=== PATIENT | male | born 1995 | race Caucasian/White ===

== ENCOUNTER 2017-10-07 15:44 | Emergency (ER) | END 2017-10-07 16:41 | disposition home or self-care (01) ==

== ENCOUNTER 2018-01-07 16:43 | Emergency (ER) | END 2018-01-07 20:14 | disposition home or self-care (01) ==

== ENCOUNTER 2018-03-09 21:05 | Emergency (ER) | END 2018-03-10 01:00 | disposition left against medical advice (07) ==

== ENCOUNTER 2018-07-27 02:28 | Emergency (ER) | payer SELFPAY ==
[~2018-07-27] VITALS: Wt 77.3 kg
[~2018-07-27 02:28] MED LIST: ACET500C5 PO; ALBU8.5H8 INH; AZIT250T PO; DOXY100T20 PO; GUAI120S26 PO; IBUP-1542 PO; LORA-186 PO; NAPR-985 PO; PRED20TA PO; no meds
[2018-07-27] MEDS ORDERED: DIPHTH/TET/ACEL PERTUSS (ADULT) 0.5 ML VIAL IM* ONE (03:00)
[2018-07-27] MEDS ORDERED: BACITRACIN/POLYMYXIN 0.9 GM OINT ONE (04:01)
--- NOTE | 2018-07-27 04:26 | ERD ---
ER Documentation Chief Complaint Chief Complaint ETOH, LEFT FINGER LAC, SCALP LACS S/P GLF HPI This 23-year-old male who presents with alcohol intoxication, status post ground level fall, where he sustained an abrasion to his left second finger, he also sustained lacerations to his scalp bilaterally, he denies vomiting or neck pain. He is otherwise healthy, he denies other trauma or injuries. ROS All systems reviewed and are negative except as per history of present illness. Medications Home Meds Active Scripts Naproxen* (Naprosyn*) 500 Mg Tablet, 500 MG PO BID PRN for PAIN AND/OR INFLAMMATION, #30 TAB Prov:MIRNA PATEL PA-C 01/07/18 Ibuprofen* (Motrin*) 600 Mg Tab, 600 MG PO Q6, #30 TAB Prov:ALDEN LOMAX PA-C 10/07/17 Doxycycline Hyclate* (Doxycycline Hyclate*) 100 Mg Tablet.dr, 100 MG PO BID for 7 Days, #14 TAB Prov:ALDEN LOMAX PA-C 10/07/17 Albuterol Sulfate* (Proair HFA*) 8.5 Gm Hfa.aer.ad, 2 PUFF INH Q4H PRN for WHEEZING AND SOB, #1 INHALER Prov:LIZBET WINTERS PA-C 06/13/16 Ugvvuidqpon-W-Zpxzuhbqhj Hb* (Guaifenesin* DM Syrup) 120 Ml Syrup, 10 ML PO Q4H PRN for COUGH, #120 ML Prov:LIZBET WINTERS PA-C 06/13/16 Prednisone* (Prednisone*) 20 Mg Tab, 60 MG PO DAILY for 4 Days, TAB Prov:LIZBET WINTERS PA-C 06/13/16 Azithromycin* (Zithromax*) 250 Mg Tablet, 250 MG PO .ArianPACK DIRECTED, #6 TAB TAKE 500 MG (2 TABS) THE FIRST DAY THEN 250 MG (1 TAB) DAYS 2-5 Prov:LIZBET WINTERS PA-C 06/13/16 Acetaminophen* (Tylophen*) 500 Mg Capsule, 1 CAP PO Q6H PRN for PAIN AND OR ELEVATED TEMP, #20 CAP Prov:JEAN-CLAUDE MACK NP 05/23/15 Ibuprofen* (Ibuprofen*) 600 Mg Tablet, 600 MG PO Q6H PRN for pa, #30 TAB Prov:JEAN-CLAUDE MACKMiguelina JONES 05/23/15 Hwzolazxjpg-X-Whljaijsku Hb* (Guaifenesin* DM Syrup) 120 Ml Syrup, 10 ML PO Q4H PRN for COUGH, #1 BOTTLE Prov:JEAN-CLAUDE MACKMiguelina JONES 05/23/15 Loratadine* (Claritin*) 10 Mg Tablet, 10 MG PO DAILY, #30 TAB Prov:JEAN-CLAUDE MACKMiguelina JONES 05/23/15 Reported Medications [no meds] No Conflict Check 06/11/12 Allergies Allergies: Coded Allergies: No Known Allergy (Unverified , 10/25/14) PMhx/Soc Medical and Surgical Hx: pt denies Surgical Hx History of Surgery: No Anesthesia Reaction: No Hx Neurological Disorder: No Hx Respiratory Disorders: Yes (ASTHMA) Hx Cardiac Disorders: No Hx Psychiatric Problems: No Hx Miscellaneous Medical Probl: No Hx Alcohol Use: Yes (beer, whiskey) Hx Substance Use: Yes (marijuana) Hx Tobacco Use: No Smoking Status: Never smoker Physical Exam Vitals Vital Signs Date Temp Pulse Resp B/P (MAP) Pulse Ox O2 O2 Flow FiO2 Time Delivery Rate 07/27/18 110 20 137/96 99 Room Air 03:00 (110) 07/27/18 97.7 97 18 138/83 97 02:30 (101) Physical Exam Const: Nontoxic appearing, smells of alcohol Head: There are 2 lacerations noted, one appears vertical approximately 3 cm, this is on the left side, the other laceration is approximately 2 cm, stellate laceration over the right scalp, there is no periorbital ecchymosis, midface is stable, Eyes: Normal Conjunctiva ENT: Normal External Ears, Nose and Mouth. Neck: Full range of motion. No meningismus. Resp: Clear to auscultation bilaterally Cardio: Regular rate and rhythm, no murmurs Abd: Soft, non tender, non distended. Normal bowel sounds Skin: No petechiae or rashes Back: No midline or flank tenderness Ext: No cyanosis, or edema. There is small abrasion over the left second finger, there is no palpable foreign body, no deformity, no evidence of deep lacerations, range of motion is intact Neur: Awake and alert Psych: Normal Mood and Affect Results 24 hrs Current Medications Medications Dose Sig/Lalo Start Time Status Last (Trade) Ordered Route PRN Stop Time Admin Dose Reason Admin Diphtheria/ 0.5 ml ONCE ONCE 07/27/18 DC 07/27/18 Tetanus/Acell IM* 03:00 07/27/18 03:08 Pertussis 03:01 (Adacel) Bacitracin/ 1 applic STK-MED 07/27/18 DC Polymyxin B ONCE .ROUTE 04:01 07/27/18 Sulfate 04:02 (Polysporin Oint Ud Pkt) Procedures/MDM 23-year-old male presents status post mechanical fall, in the setting of alcohol intoxication, the patient had 2 lacerations which were repaired with evelyn without complication, his tetanus was updated, his x-ray of his left hand showed no evidence of foreign body, or fracture. CT brain was negative for intracranial findings. His CT C-spine, was also negative, and he had no tenderness on exam, discussed findings with patient, and gave return precautions regarding his laceration repair, patient was discharged with family. At discharge she was in no acute distress. Laceration Repair by me: Anesthesia: None Location: Right and left scalp Tendon/Joint/Nerves: No injury Foreign body: None detected after copious irrigation and exploration Technique: Evelyn: 8 evelyn placed on the right side, 3 evelyn placed on the left Complexity: No subcutaneous sutures/mucosal repair/edge excision Post Closure Length: 3 cm right leg laceration, and 2 cm left-sided laceration Patient's bleeding was easily controlled in the department and there is no indication of anemia. No evidence of compartment syndrome, neurologic injury, vascular injury, open joint, tendon laceration, or foreign body. Patient is appropriate for outpatient follow up. 48 hour wound check. Scar minimization instructions given. Departure Diagnosis: Primary Impression: Alcohol intoxication Complication of substance-induced condition: uncomplicated Qualified Codes: F10.920 - Alcohol use, unspecified with intoxication, uncomplicated Additional Impressions: Scalp laceration Encounter type: initial encounter Qualified Codes: S01.01XA - Laceration without foreign body of scalp, initial encounter Finger abrasion Encounter type: initial encounter Qualified Codes: S60.419A - Abrasion of unspecified finger, initial encounter Condition: Stable Patient Instructions: Laceration, Scalp Additional Instructions: Call your primary care doctor TOMORROW for an appointment during the next 2-3 days.See the doctor sooner or return here if your condition worsens before your appointment time. ALVINA GUY MD Jul 27, 2018 04:26
[2018-07-27 04:42] VITALS: BP 120/86; PULSE 87; RESP 16
== END 2018-07-27 04:43 | disposition home or self-care (01) ==
LOC: E/R 02:28
DX: S01.01XA Laceration without foreign body of scalp, initial encounter (principal); F10.920 Alcohol use, unspecified with intoxication, uncomplicated; S60.411A Abrasion of left index finger, initial encounter; R40.2142 Coma scale, eyes open, spontaneous, at arrival to emergency department; R40.2252 Coma scale, best verbal response, oriented, at arrival to emergency department; R40.2362 Coma scale, best motor response, obeys commands, at arrival to emergency department; J45.909 Unspecified asthma, uncomplicated; W18.09XA Striking against other object with subsequent fall, initial encounter; Y92.480 Sidewalk as the place of occurrence of the external cause; Z23 Encounter for immunization
CPT/HCPCS: 70450; 72125; 90471; 90715